=== PATIENT | male | born 1950 | race Caucasian/White ===

== ENCOUNTER 2017-08-22 15:45 | Emergency (ER) | payer OTHER ==
[~2017-08-22] VITALS: Ht 180.3 cm; Wt 93.1 kg
[2017-08-22] MEDS ORDERED: INDOCIN50 MG PO (16:37)
[2017-08-22 16:52] VITALS: BP 142/90
== END 2017-08-22 16:53 | disposition home or self-care (01) ==
LOC: EME 15:45
DX: S90.32XA Contusion of left foot, initial encounter (principal); S90.812A Abrasion, left foot, initial encounter; W06.XXXA Fall from bed, initial encounter; Y93.89 Activity, other specified; Y92.003 Bedroom of unspecified non-institutional (private) residence as the place of occurrence of the external cause; Z87.891 Personal history of nicotine dependence
CPT/HCPCS: 73630; 99281; 99284